=== PATIENT | male | born 1955 | race Caucasian/White ===

== ENCOUNTER 2020-01-18 05:27 | Day surgery (SDC) ==
[2020-01-18 06:05] LABS: BASO# 0.05 X1000 (0.0-0.2); BASO% 0.5 % (0.0-0.8); EOS# 0.48 X1000 (0.0-0.7); EOS% 5.1 % (0.0-10.0); HEMOGLOBIN 15.4 g/dL (14.0-18.0); IMM GRAN# 0.02 X1000 (0.0-0.04); IMM GRAN% 0.2 % (0.0-0.5); LYMPH# 2.59 X1000 (1.2-3.4); LYMPH% 27.4 % (20.5-51.1); MCH 30.2 PG (27-31); MCHC 33.5 g/dL (33-37); MCV 90.2 FL (81-99); MONO# 0.73 X1000 (0.11-0.59); MONO% 7.7 % (1.7-9.3); MPV 10.7 FL (7.4-10.4); NEUT# 5.58 X1000 (1.4-6.5); NEUT% 59.1 % (42.2-75.2); PLT 227 X1000 (130-400); RDW 12.6 % (11.5-14.5); WBC 9.45 X1000 (4.8-10.8)
[2020-01-18] MEDS ORDERED: LR 1,000 ML ONE ×2 (06:07→06:41)
[2020-01-18] MEDS ORDERED: KEFZOL 1 GM/D5W 2 GM/100 ML IVPB ONE (06:07)
[2020-01-18 06:12] LABS: INR 0.92; PROTIME 12.5 Seconds (11.0-16.0)
[2020-01-18 06:13] LABS: PTT 31.4 Seconds (22.3-41.8)
[2020-01-18 06:28] LABS: AGAP 11; BUN 12 mg/dL (8-22); CALCIUM 9.5 mg/dL (8.8-10.2); CHLORIDE 105 mmol/L (98-107); COSMO 280; CREATININE 0.9 mg/dL (0.7-1.2); ESTIMATED GFR > 60; GLUCOSE 114 mg/dL (70-104); POTASSIUM 4.8 mmol/L (3.5-5.1); SODIUM 140 mmol/L (136-145); TCO2 24 mmol/L (25-35)
[2020-01-18] MEDS ORDERED: DIPRIVAN 1% ONE (06:32)
[2020-01-18] MEDS ORDERED: QUELICIN (DOSE) ONE (06:35)
[2020-01-18] MEDS ORDERED: NORCURON ONE (06:36)
[2020-01-18] MEDS ORDERED: STERILE WATER INJ. ONE (06:36)
[2020-01-18] MEDS ORDERED: VERSED ONE (06:38)
[2020-01-18] MEDS ORDERED: SUFENTA ONE (06:39)
[2020-01-18] MEDS ORDERED: MARCAINE 0.25% PF/EPI 1:200,000 ONE (06:41)
[2020-01-18] MEDS ORDERED: B & O 16A SUPP ONE (06:41)
[2020-01-18] MEDS ORDERED: DECADRON ONE (08:51)
[2020-01-18] MEDS ORDERED: OFIRMEV 1000 MG/ISOTONIC SOLN 1,000 MG/100 ML BOTTLE ONE (08:51)
[2020-01-18] MEDS ORDERED: ZOFRAN ONE (08:51)
[2020-01-18 09:11] LABS: URINE SOURCE CATH
[2020-01-18 09:16] LABS: BILIRUBIN URINE NEGATIVE (NEGATIVE); BLOOD URINE NEGATIVE (NEGATIVE); COLOR YELLOW; GLUCOSE URINE NEGATIVE (NEGATIVE); KETONE URINE NEGATIVE (NEGATIVE); LEUKOCYTES URINE NEGATIVE (NEGATIVE); NITRITE URINE NEGATIVE (NEGATIVE); PROTEIN URINE NEGATIVE (NEGATIVE); TURBIDITY URINE CLEAR (CLEAR); UROBILINOGEN URINE NORMAL (NORMAL)
[2020-01-18 09:17] LABS: UR EPITHELIAL CELLS <10 /HPF (<10); URINE BACTERIA NEGATIVE /HPF; URINE RBC <10 /HPF (<10); URINE WBC <10 /HPF (<10)
[2020-01-18] MEDS ORDERED: ROBINUL ONE (09:25)
[2020-01-18] MEDS: DILAUDID ONE ×4 (10:11→10:29)
[2020-01-18] MEDS ORDERED: NORCO-10 ONE (10:41)
[2020-01-18] MEDS ORDERED: PHENERGAN PO PRN (12:30)
[2020-01-18] MEDS ORDERED: SODIUM CHLORIDE 0.9% INJ PRN (12:30)
[2020-01-18] MEDS ORDERED: PHENERGAN PR PRN (12:30)
[2020-01-18] MEDS ORDERED: DITROPAN PO PRN (12:30)
[2020-01-18] MEDS ORDERED: LABETALOL IV PRN (12:30)
[2020-01-18] MEDS ORDERED: NORCO-7.5 PO PRN (12:30)
[2020-01-18] MEDS ORDERED: BENADRYL IV PRN (12:30)
[2020-01-18] MEDS ORDERED: DILAUDID IV PRN (12:30)
[2020-01-18] MEDS ORDERED: BENADRYL LIQUID PO PRN (12:30)
[2020-01-18] MEDS ORDERED: NORCO-10 PO PRN (12:30)
[2020-01-18] MEDS ORDERED: ZOFRAN IV PRN (12:30)
[2020-01-18] MEDS ORDERED: PHENERGAN IV PRN (12:30)
[2020-01-18] MEDS ORDERED: OFIRMEV 1000 MG/ISOTONIC SOLN 1,000 MG/100 ML BOTTLE IV PRN (14:30)
--- NOTE | 2020-01-18 14:40 | OPERATIVE NOTE ---
PROCEDURE DATE: 01/18/2020 SURGEON: Dr. 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 PROCEDURE: Robotic-assisted laparoscopic prostatectomy with bilateral pelvic lymph node dissection and laparoscopic urethral suspension. SHOOK MACHINE OPERATOR: Dr. Eldon Hannah. Please note, Dr. Hannah was present and assisted through all the critical components of the case. INDICATIONS: A 65-year-old male with history of bladder cancer, who developed fairly high PSA of over 10. He underwent 4K score test which came back high and ultimately underwent prostate biopsy. It revealed Egan 7 prostatic carcinoma in 11/12 cores with quite extensive core involvement. He feels strongly about surgical intervention. He had a negative CT scan and bone scan. He was counseled on the risks of the procedure, specifically long-term risk of urinary incontinence and erectile dysfunction. FINDINGS: He had severe inflammatory reaction around his vas deferens and seminal vesicles, which were basically plastered to the perineum. Given the extent of his disease, limited nerve sparing was performed. Given the extent of disease, I did not want to perform maximal urethral length sparing technique. Watertight vesicourethral anastomosis at 240 mL. DESCRIPTION OF PROCEDURE: After informed consent patient brought to the operating room. Perioperative antibiotics and general endotracheal anesthesia were administered. He was placed in lithotomy position, prepped and draped in a sterile fashion. An 18-Tuvaluan Ace catheter was introduced and his bladder was drained. I made a small stab incision in his umbilicus and introduced a Veress needle connected to saline-filled syringe. Positive drop test was confirmed followed by aspiration of fluid from the syringe without evidence of GI fluid or blood. I then insufflated his pneumoperitoneum pressure to 15 mmHg. Following that, the trocar sites were demarcated in a standard prostatectomy fashion. 10 mL of 0.25% Marcaine with epinephrine were used to anesthetize the local trocar sites. Bovie electrocautery was used to incise skin. Supraumbilical incision was made and a robotic camera was inserted. The robotic camera was inserted after the 12 mm trocar was introduced and peritoneal cavity was inspected. He had no evidence of significant adhesions. He was placed in Trendelenburg position and the rest of the trocars were placed under direct vision. The robot was docked. I began by incising peritoneal lining 3 cm above the rectum and identified and isolated, and transected the right vas deferens. The vas deferens was very adherent to the perineum and was laterally plastered requiring cautery. The right seminal vesicle was also quite stuck and required extensive dissection with the use of cautery. I ultimately identified transected left vas deferens and left seminal vesicle. We then dissected anterior to vas deferens to the level of prostate and subsequently posterior to seminal vesicles through the Denonvilliers fascia by developing perirectal plane. Attention was turned to dropping the bladder. I incised lateral to each medial umbilical ligament and dropped the bladder. The fat was reflected from endopelvic fascia. Endopelvic fascia was incised along the contour of the prostate. Dissection extended toward the apex. Puboprostatic ligaments were divided sharply. Superficial dorsal venous complex was controlled with bipolar electrocautery. Deep dorsal venous complex was controlled with 0 V-Loc suture in a figure-of- eight fashion with periosteal elevation. Attention was turned to dividing the bladder neck. Monopolar cautery was used and gentle tugging on the Ace balloon helped us identify the level of the bladder neck. Once Ace catheter came into the view it was brought into the field and the prostate was elevated anteriorly. Following that, the dissection was made between the prostate and the bladder ultimately yielding us to the location of the seminal vesicles vas deferens. Even though his vas deferens was dissected previously by me, and documented, it was fairly hard. They were still plastered and difficult to bring out into the field. It required some more dissection and ultimately I was able to bring them into the view and place them on the anterior traction. Attention was then turned to neurovascular bundles. Given his extent of disease, I stayed wide and we performed limited nerve sparing. Hem-O-Lock clips were used as well as a bipolar electrocautery. Ultimately, the smooth contour of the prostate was followed. The prostate was freed posterolaterally at 5 and 7 o'clock as well as posteriorly between the prostate and the rectum. [place] of the prostate was transected sharply. Again, given the extent of disease, I did not perform maximal urethral length sparing technique. Once the prostate was dissected free, it was ultimately placed into EndoCatch bag. Attention was turned to the pelvic lymph node dissection. I began on the right side by moving the bladder medially with the fourth arm. The right external iliac vein was identified. Lymphatic packet was grasped and dissection ensued with the following landmarks, confluence of external and internal iliac veins proximally; pelvic sidewall laterally; perivesical fat medially; obturator arteries and nerve posteriorly. Please note that I was able to visualize the obturator nerve and stayed well away from it. The lymphatic packet was excised in 1 pack and 1 piece and submitted labeled as pelvic lymph nodes. We then performed the same thing on the left side with identical margins. Surgicel SNoW hemostatic agent was then introduced into each lymphadenectomy bed to decrease the chance of lymphocele. Attention was then turned to Eric stitch. A 3-0 V-Loc suture was used to reapproximate perivesical and periurethral fascia saving the suture ends for future laparoscopic suspension. We then performed vesicourethral anastomosis with another 3-0 V-Loc suture in a clockwise and counter- clockwise fashion cross tying the sutures ultimately. Once that was done, a fresh 18-Tuvaluan Ace catheter was introduced without difficulties and anastomosis with tested with 240 mL of fluid. There was no evidence of leak. Following that, a laparoscopic urethral suspension was performed by using previously placed 3-0 V-Loc sutures and threading them through the periosteum just lateral to the midline pubis. The urethra was suspended nicely bilaterally and the suture and needles were removed. Pneumoperitoneal pressure was decreased to 3 mmHg and there was no evidence of bleeding. We then undocked the robot, extended the supraumbilical incision, and removed the prostate and the pelvic lymph nodes. The wounds were copiously irrigated. Then, #1 PDS suture was used to close supraumbilical fascia in a running style. A 0 Vicryl suture was used for fascial closure of the 12 mm assistant professor of economics trocar. 4-0 Monocryl sutures were used for subcuticular closure followed by application of Covidien adhesive agent. Ace catheter was placed to gravity drainage. He was extubated taken to PACU for further recovery. ESTIMATED BLOOD LOSS: 350 mL. COMPLICATIONS: None. DRAINS: 18-Tuvaluan Ace. DISPOSITION: To PACU and subsequently floor for observation. cc: Steve Rm MD MTDDemetrius
[2020-01-18] MEDS: KEFZOL 2 GM/D5W 2 GM/50 ML IVPB IV SCH ×2 (14:45→23:31)
[2020-01-18] MEDS: D5 1/2 NS 1,000 ML IV SCH ×2 (14:49→19:51)
[2020-01-18] MEDS: PERIDEX MT SCH (23:27)
[2020-01-18] MEDS: COLACE PO SCH (23:27)
[2020-01-18] MEDS: TYLENOL PO PRN (23:33)
[2020-01-19] MEDS: NORCO-5 PO PRN ×2 (05:20→11:07)
[2020-01-19 06:05] LABS: HEMATOCRIT 37.9 % (42.0-52.0); HEMOGLOBIN 12.4 g/dL (14.0-18.0); MCHC 32.7 g/dL (33-37); MCV 94.8 FL (81-99); MPV 11.2 FL (7.4-10.4); RDW 12.7 % (11.5-14.5); WBC 17.62 X1000 (4.8-10.8)
[2020-01-19 06:09] LABS: AGAP 12; BUN 9 mg/dL (8-22); CALCIUM 8.7 mg/dL (8.8-10.2); CHLORIDE 103 mmol/L (98-107); COSMO 277; CREATININE 0.9 mg/dL (0.7-1.2); ESTIMATED GFR > 60; GLUCOSE 148 mg/dL (70-104); POTASSIUM 4.5 mmol/L (3.5-5.1); SODIUM 138 mmol/L (136-145); TCO2 23 mmol/L (25-35)
[2020-01-19] MEDS: KEFZOL 2 GM/D5W 2 GM/50 ML IVPB IV SCH (06:15)
[2020-01-19] MEDS: D5 1/2 NS 1,000 ML IV SCH (06:15)
[2020-01-19 07:37] VITALS: BP 173/89
[2020-01-19] MEDS: TYLENOL PO PRN (08:45)
[2020-01-19] MEDS: COLACE PO SCH (08:45)
[2020-01-19] MEDS: PERIDEX MT SCH (08:45)
--- NOTE | 2020-01-19 09:14 | PROGRESS NOTE ---
DATE: 01/19/2020 SUBJECTIVE: Mr. Syed reports a decent night overnight. He has had some pain, which was controlled with [place] 5. He denies nausea or vomiting. OBJECTIVE: Vitals: T 97.6 degrees, P 75, BP 173/89. His urine output was recorded in the amount of 3,800 mL. General: No acute distress. Abdomen: Soft, nontender, nondistended. Incisions are clean, dry, intact in all port sites. : Ace catheter in place draining straw-colored urine. PERTINENT LABORATORY DATA: White cell count is 18,000, hematocrit 38. Creatinine is 0.9. ASSESSMENT: A 65-year-old male postop day 1 status post robotic-assisted laparoscopic prostatectomy with bilateral pelvic lymph node dissection and laparoscopic urethral suspension, who is doing well. He feels that he is ready to go home. He had tolerated food, and his pain is under control. We discussed postoperative care. PLAN: 1. Discharge home today. 2. He will go home with prescriptions for [place] 7.5, Keflex, Ditropan, and Zofran. 3. I plan on seeing him on 01/23/2020 to have his Ace catheter removed. cc: Steve Rm MD
== END 2020-01-19 11:12 | disposition other institution (70) ==
LOC: 4N 05:27 → OR 05:27
PROVIDERS: ATTEND Urology